=== PATIENT | female | born 1950 | race Caucasian/White ===

== ENCOUNTER 2018-11-22 09:47 | Emergency (ER) | payer MEDICARE ==
[~2018-11-22] VITALS: Ht 160 cm; Wt 59.1 kg
[~2018-11-22 09:47] MED LIST: ACET1TAB12 PO; BENZ1TAB7 PO; CALC0.2536 PO; CHOL2000 PO; CLON-527 PO; GABA-338 PO; HALO1TAB PO; LEVO88TA39 PO; QUET150T2 PO; TRIH2TAB3 PO; ZOLP10TA5 PO
[2018-11-22 10:48] LABS: BASOPHILS # (AUTO) 0.1 X10'3 (0-0.2); BASOPHILS % (AUTO) 1.3 % (0-1); EOSINOPHILS # (AUTO) 0.3 X10'3 (0-0.9); EOSINOPHILS % (AUTO) 3.9 % (0-6); HEMATOCRIT 39.6 % (35.0-45.0); HEMOGLOBIN 12.9 g/dl (12.0-16.0); LYMPHOCYTES # (AUTO) 1.9 X10'3 (1.1-4.8); LYMPHOCYTES % (AUTO) 24.9 % (21-51); MEAN CORPUSCULAR HEMOGLOBIN 30.4 PG (27.0-31.0); MEAN CORPUSCULAR HGB CONC 32.6 g/dL (33.0-36.5); MEAN CORPUSCULAR VOLUME 93.1 FL (78-98); MEAN PLATELET VOLUME 8.8 FL (7.4-10.4); MONOCYTES # (AUTO) 0.5 X10'3 (0-0.9); NEUTROPHILS # (AUTO) 4.7 X10'3 (1.8-7.7); NEUTROPHILS % (AUTO) 62.9 % (42-75); PLATELET COUNT 236 X10'3 (140-440); RED BLOOD COUNT 4.25 X10'6 (4.20-5.60); RED CELL DISTRIBUTION WIDTH 13.9 % (11.5-14.5); WHITE BLOOD COUNT 7.4 X10'3 (4.5-11.0)
[2018-11-22 11:00] LABS: ALANINE AMINOTRANSFERASE 20 U/L (12-78); ALBUMIN 3.5 G/DL (3.4-5.0); ALBUMIN/GLOBULIN RATIO 0.9 (1.1-1.5); ALKALINE PHOSPHATASE 60 IU/L (46-116); ANION GAP 5 (8-16); ASPARTATE AMINO TRANSFERASE 12 U/L (10-37); BILIRUBIN,TOTAL 0.5 MG/DL (0.1-1.0); BLOOD UREA NITROGEN 19 MG/DL (7-18); CALCIUM 9.3 MG/DL (8.5-10.1); CHLORIDE 104 MMOL/L (99-107); CREATININE 1.27 MG/DL (0.40-0.90); GLUCOSE 99 MG/DL (70-104); POTASSIUM 4.3 MMOL/L (3.5-5.1); SODIUM 141 MMOL/L (135-145); TOTAL CARBON DIOXIDE 32.5 MMOL/L (24-32); TOTAL PROTEIN 7.3 G/DL (6.4-8.2); eGFR 42 ML/MIN
[2018-11-22] MEDS ORDERED: normal saline 1000ML IV soln IVB ONE ×2 (12:10→12:55)
--- NOTE | 2018-11-22 12:38 | NUR ---
PATIENT PLACED ON TRENDELENBERG,CALL LIGHT WITHIN REACH.
--- NOTE | 2018-11-22 13:51 | NUR ---
pt up to [facility].
[2018-11-22 14:23] LABS: CLARITY,URINE CLOUDY (Clear); COLOR,URINE YELLOW (Yellow); GLUCOSE, URINE NEGATIVE (Neg); KETONES,URINE NEGATIVE (Neg); LEUKOCYTE ESTERASE ,URINE LARGE (Neg); NITRITES, URINE NEGATIVE (Neg); OCCULT BLOOD,URINE SMALL (Neg); PROTEIN,URINE TRACE mg/dl (Neg); UROBILINOGEN,URINE 0.2 E.U/dL (0.2-1.0)
[2018-11-22 14:27] LABS: UA COLLECTION TYPE CLN CATCH MIDSTREAM
[2018-11-22 14:30] LABS: BACTERIA,URINE 2+ /HPF (Neg); MUCUS STRANDS NONE SEEN /LPF (Neg); RBC,URINE 0-2 /HPF (0-2); SQUAMOUS EPITHELIAL CELL,UR NONE SEEN /LPF (FEW); WBC,URINE TNTC /HPF (0-4)
[2018-11-22] MEDS ORDERED: cephalexin 500mg capsule PO ONE (14:30)
[2018-11-22] MEDS ORDERED: CEPH500C5 PO (14:31)
[2018-11-22 15:06] VITALS: BP 123/74
== END 2018-11-22 15:09 | disposition home or self-care (01) ==
LOC: ER 09:48
DX: E86.0 Dehydration (principal); N39.0 Urinary tract infection, site not specified; E11.9 Type 2 diabetes mellitus without complications; E21.3 Hyperparathyroidism, unspecified; E03.9 Hypothyroidism, unspecified; F31.9 Bipolar disorder, unspecified; Z98.890 Other specified postprocedural states; Z86.73 Personal history of transient ischemic attack (TIA), and cerebral infarction without residual deficits; Z87.891 Personal history of nicotine dependence; Z56.0 Unemployment, unspecified; Z98.84 Bariatric surgery status; Z90.89 Acquired absence of other organs; Z88.8 Allergy status to other drugs, medicaments and biological substances; Z79.899 Other long term (current) drug therapy
CPT/HCPCS: 36415; 80053; 81001; 84443; 85025; 87077; 87088; 87186; 93005; 96360; 96361; 99284; J7030

== ENCOUNTER 2018-12-25 11:35 | Outpatient (CLI) | payer MEDICARE ==
[2018-12-25] VITALS (26 sets, daily range): BP systolic 78–133; BP diastolic 60–81
[~2018-12-25 11:35] MED LIST changes: +CEPH500C5 PO
== END 2018-12-25 23:59 | disposition home or self-care (01) ==
LOC: CARD DIAG 11:35
PROVIDERS: ATTEND Internal Medicine Interventional Cardiology
DX: I95.1 Orthostatic hypotension (principal)
CPT/HCPCS: 93660

== ENCOUNTER 2019-05-08 09:32 | Emergency (ER) | payer MEDICARE ==
[~2019-05-08] VITALS: Ht 160 cm; Wt 56.0 kg
[2019-05-08] MEDS ORDERED: traMADol 50MG tablet PO ONE (10:05)
[2019-05-08 11:33] VITALS: BP 111/69
== END 2019-05-08 11:52 | disposition home or self-care (01) ==
LOC: ER 09:32
DX: I80.02 Phlebitis and thrombophlebitis of superficial vessels of left lower extremity (principal); E11.9 Type 2 diabetes mellitus without complications; E03.9 Hypothyroidism, unspecified; F31.9 Bipolar disorder, unspecified; F10.99 Alcohol use, unspecified with unspecified alcohol-induced disorder; Z86.73 Personal history of transient ischemic attack (TIA), and cerebral infarction without residual deficits; Z98.84 Bariatric surgery status; Z98.890 Other specified postprocedural states; Z56.0 Unemployment, unspecified; Z88.8 Allergy status to other drugs, medicaments and biological substances; Z79.899 Other long term (current) drug therapy; Y90.9 Presence of alcohol in blood, level not specified
CPT/HCPCS: 93971; 99284

== ENCOUNTER 2019-05-15 09:43 | Observation (INO) | payer MEDICARE ==
[~2019-05-15] VITALS: Ht 165.1 cm; Wt 65.9 kg
--- NOTE | 2019-05-15 10:28 | NUR ---
vascular at bedside with pt.
[2019-05-15 11:02] LABS: BASOPHILS % (AUTO) 0.4 % (0-1); EOSINOPHILS # (AUTO) 0.2 X10'3 (0-0.9); EOSINOPHILS % (AUTO) 1.4 % (0-6); HEMATOCRIT 36.4 % (35.0-45.0); HEMOGLOBIN 11.6 g/dl (12.0-16.0); LYMPHOCYTES # (AUTO) 0.5 X10'3 (1.1-4.8); LYMPHOCYTES % (AUTO) 3.8 % (21-51); MEAN CORPUSCULAR HEMOGLOBIN 27.9 PG (27.0-31.0); MEAN CORPUSCULAR HGB CONC 31.9 g/dL (33.0-36.5); MEAN CORPUSCULAR VOLUME 87.4 FL (78-98); MEAN PLATELET VOLUME 8.4 FL (7.4-10.4); MONOCYTES # (AUTO) 0.4 X10'3 (0-0.9); MONOCYTES % (AUTO) 3.1 % (2-12); NEUTROPHILS # (AUTO) 10.7 X10'3 (1.8-7.7); NEUTROPHILS % (AUTO) 91.3 % (42-75); PLATELET COUNT 259 X10'3 (140-440); RED BLOOD COUNT 4.17 X10'6 (4.20-5.60); RED CELL DISTRIBUTION WIDTH 16.9 % (11.5-14.5); WHITE BLOOD COUNT 11.7 X10'3 (4.5-11.0)
[2019-05-15 11:14] LABS: ALANINE AMINOTRANSFERASE 15 U/L (12-78); ALBUMIN 2.8 G/DL (3.4-5.0); ALBUMIN/GLOBULIN RATIO 0.7 (1.1-1.5); ALKALINE PHOSPHATASE 108 IU/L (46-116); ANION GAP 11 (8-16); ASPARTATE AMINO TRANSFERASE 19 U/L (10-37); BILIRUBIN,TOTAL 0.4 MG/DL (0.1-1.0); BLOOD UREA NITROGEN 37 MG/DL (7-18); BUN/CREATININE RATIO 14.6 (6.6-38.0); CALCIUM 8.7 MG/DL (8.5-10.1); CHLORIDE 106 MMOL/L (99-107); CREATININE 2.53 MG/DL (0.40-0.90); GLUCOSE 92 MG/DL (70-104); LIPASE 56 U/L (73-393); POTASSIUM 4.9 MMOL/L (3.5-5.1); SODIUM 142 MMOL/L (135-145); TOTAL CARBON DIOXIDE 24.8 MMOL/L (24-32); TOTAL PROTEIN 6.7 G/DL (6.4-8.2); eGFR 19 ML/MIN
[2019-05-15 11:14] LABS: CLARITY,URINE SLIGHTLY CLOUDY (Clear); COLOR,URINE YELLOW (Yellow); GLUCOSE, URINE NEGATIVE (Neg); KETONES,URINE NEGATIVE (Neg); LEUKOCYTE ESTERASE ,URINE NEGATIVE (Neg); NITRITES, URINE NEGATIVE (Neg); OCCULT BLOOD,URINE NEGATIVE (Neg); PH,URINE 5.5 (4.8-8.0); PROTEIN,URINE NEGATIVE (Neg); UROBILINOGEN,URINE 0.2 E.U/dL (0.2-1.0)
[2019-05-15 11:17] LABS: UA COLLECTION TYPE CLN CATCH MIDSTREAM
[2019-05-15 11:23] LABS: WBC,URINE 0-4 /HPF (0-4)
[2019-05-15 11:25] LABS: BACTERIA,URINE FEW /HPF (Neg); MUCUS STRANDS FEW /LPF (Neg); RBC,URINE 0-2 /HPF (0-2); SQUAMOUS EPITHELIAL CELL,UR FEW /LPF (FEW)
[2019-05-15 11:26] LABS: HYALINE CASTS 0-3 /LPF (NEGATIVE); RENAL CELLS, URINE FEW /HPF
--- NOTE | 2019-05-15 11:40 | NUR ---
preceptor for JUAN RAMON Aponte
[2019-05-15] MEDS ORDERED: ondansetron/PF 4mg/2ml inj IV ONE (11:45)
[2019-05-15] MEDS ORDERED: normal saline 1000ML IV soln IVB ONE (11:45)
[2019-05-15] MEDS ORDERED: ACET-3067 PO (12:18)
[2019-05-15] MEDS ORDERED: GABA600T PO (12:18)
[2019-05-15] MEDS ORDERED: QUET300T2 PO (12:18)
[2019-05-15] MEDS ORDERED: ROPI0.252 PO (12:18)
[2019-05-15] MEDS ORDERED: POLY17PO10 PO (12:18)
[2019-05-15] MEDS ORDERED: OMEP20TA23 PO (12:18)
[2019-05-15] MEDS ORDERED: MELA3TAB64 PO (12:18)
[2019-05-15] MEDS ORDERED: LEVO50TA PO (12:18)
[2019-05-15] MEDS ORDERED: potassium CL 10mEq/100ml bag 100 ML IV PRN ×2 (12:20)
[2019-05-15] MEDS ORDERED: magnesium hydroxide 30ml (MOM) UD suspension PO PRN (12:20)
[2019-05-15] MEDS ORDERED: acetaminophen 325mg tablet PO PRN (12:20)
[2019-05-15] MEDS ORDERED: magnesium Cl slow-release 64mg tablet PO PRN (12:20)
[2019-05-15] MEDS ORDERED: mag hydrox/Alum hydrox/simeth 30ml oral suspension PO PRN (12:20)
[2019-05-15] MEDS ORDERED: magnesium 2GM in 50ml NS 50 ML IV PRN (12:20)
[2019-05-15] MEDS ORDERED: potassium Cl 20 mEq SR tablet PO PRN ×2 (12:20)
[2019-05-15] MEDS ORDERED: magnesium 4gm in 100ml NS 100 ML IV PRN (12:20)
[2019-05-15] MEDS ORDERED: metoclopramide 5 mg/ml inj IV PRN (12:20)
--- NOTE | 2019-05-15 12:33 | NUR ---
Patient given ice water per Dr Bianchi.
[2019-05-15 12:49] LABS: PARTIAL THROMBOPLASTIN TIME 26 SECONDS (22-32)
[2019-05-15] MEDS: normal saline 1000ml 1,000 ML IV SCH (13:13)
[2019-05-15] MEDS: polyethylene glycol 3350 17gm powd pack PO SCH (13:35)
[2019-05-15] MEDS ORDERED: zolpidem 5mg tablet PO PRN (13:45)
[2019-05-15 15:00] VITALS: BP 85/59
[2019-05-15 18:00] VITALS: BP 95/61
--- NOTE | 2019-05-15 18:30 | NUR ---
Patient in room [facility]. I have received report from JUAN RAMON Mayers and had the opportunity to ask questions and assume patient care.
--- NOTE | 2019-05-15 19:08 | NUR ---
Received report from [facility] ED nurse around 1300. Patient report given, questions answered & plan of care reviewed with Andrea DELATORRE.
[2019-05-15] MEDS: K and/or MAG REPLACEMENT MC SCH (20:00)
[2019-05-15] MEDS ORDERED: calcitriol 0.25mcg capsule PO SCH (21:00)
[2019-05-15] MEDS ORDERED: Melatonin 3mg tablet PO SCH (21:00)
[2019-05-15] MEDS ORDERED: gabapentin 300mg capsule PO SCH (21:00)
[2019-05-15] MEDS ORDERED: acetaminophen w/codeine (30MG) #3 tablet PO SCH (21:00)
[2019-05-15] MEDS ORDERED: ROPINIRole 0.25mg tablet PO SCH (21:00)
[2019-05-15] MEDS ORDERED: quetiapine 100mg tablet PO SCH (21:00)
[2019-05-15] MEDS ORDERED: temazepam 15mg capsule PO PRN (21:00)
[2019-05-15] MEDS ORDERED: acetaminophen w/codeine (60MG) #4 tablet PO SCH (21:00)
[2019-05-15] MEDS: ondansetron/PF 4mg/2ml inj IV PRN (21:11)
[2019-05-15] MEDS: heparin, porcine 5000 units/ml vial SQ SCH (21:58)
[2019-05-15 22:00] LABS: HEMOGLOBIN A1C 5.9 % (4.5-6.2)
[2019-05-16] VITALS: BP 93/51
[2019-05-16] MEDS: normal saline 1000ml 1,000 ML IV SCH ×2 (00:19→08:18)
[2019-05-16 05:59] LABS: BASOPHILS % (AUTO) 0.4 % (0-1); EOSINOPHILS # (AUTO) 0.2 X10'3 (0-0.9); EOSINOPHILS % (AUTO) 2.6 % (0-6); HEMATOCRIT 30.1 % (35.0-45.0); HEMOGLOBIN 9.8 g/dl (12.0-16.0); LYMPHOCYTES # (AUTO) 0.9 X10'3 (1.1-4.8); LYMPHOCYTES % (AUTO) 10.2 % (21-51); MEAN CORPUSCULAR HEMOGLOBIN 28.4 PG (27.0-31.0); MEAN CORPUSCULAR HGB CONC 32.6 g/dL (33.0-36.5); MEAN CORPUSCULAR VOLUME 87.1 FL (78-98); MEAN PLATELET VOLUME 8.8 FL (7.4-10.4); MONOCYTES # (AUTO) 0.6 X10'3 (0-0.9); MONOCYTES % (AUTO) 6.6 % (2-12); NEUTROPHILS # (AUTO) 7.2 X10'3 (1.8-7.7); NEUTROPHILS % (AUTO) 80.2 % (42-75); PLATELET COUNT 205 X10'3 (140-440); RED BLOOD COUNT 3.46 X10'6 (4.20-5.60); RED CELL DISTRIBUTION WIDTH 16.9 % (11.5-14.5)
[2019-05-16 06:06] LABS: PARTIAL THROMBOPLASTIN TIME 32 SECONDS (22-32)
[2019-05-16 06:30] VITALS: BP 100/59
--- NOTE | 2019-05-16 06:30 | NUR ---
Patient in room [facility]. I have received report from JUAN RAMON Mendez and had the opportunity to ask questions and assume patient care.
[2019-05-16 06:32] LABS: ALANINE AMINOTRANSFERASE 12 U/L (12-78); ALBUMIN 2.2 G/DL (3.4-5.0); ALBUMIN/GLOBULIN RATIO 0.7 (1.1-1.5); ALKALINE PHOSPHATASE 89 IU/L (46-116); ANION GAP 10 (8-16); ASPARTATE AMINO TRANSFERASE 18 U/L (10-37); BILIRUBIN,TOTAL 0.4 MG/DL (0.1-1.0); BLOOD UREA NITROGEN 36 MG/DL (7-18); BUN/CREATININE RATIO 14.9 (6.6-38.0); CALCIUM 7.9 MG/DL (8.5-10.1); CHLORIDE 111 MMOL/L (99-107); CHOL/HDL RATIO 3.1 (0.00-4.99); CHOLESTEROL 162 MG/DL (0-200); CREATININE 2.42 MG/DL (0.40-0.90); GLUCOSE 78 MG/DL (70-104); HDL CHOLESTEROL 53 MG/DL (35-60); LDL CHOLESTEROL 77 MG/DL (50-100); POTASSIUM 4.9 MMOL/L (3.5-5.1); SODIUM 144 MMOL/L (135-145); TOTAL CARBON DIOXIDE 23.5 MMOL/L (24-32); TOTAL PROTEIN 5.4 G/DL (6.4-8.2); TRIGLYCERIDES 153 MG/DL (20-135); eGFR 20 ML/MIN
--- NOTE | 2019-05-16 06:52 | NUR ---
Problems reprioritized. Patient report given, questions answered & plan of care reviewed with JUAN RAMON Martinez.
[2019-05-16] MEDS ORDERED: levoTHYROXINE 25mcg tablet PO SCH (07:00)
--- NOTE | 2019-05-16 07:03 | NUR ---
Patient in room [facility]. I have received report from Andrea DELATORRE and had the opportunity to ask questions and assume patient care.
[2019-05-16] MEDS ORDERED: pantoprazole 40mg Tablet.DR PO SCH (07:30)
[2019-05-16] MEDS: K and/or MAG REPLACEMENT MC SCH (07:55)
[2019-05-16] MEDS: polyethylene glycol 3350 17gm powd pack PO SCH (08:12)
[2019-05-16] MEDS: ondansetron/PF 4mg/2ml inj IV PRN (08:13)
[2019-05-16] MEDS: heparin, porcine 5000 units/ml vial SQ SCH (08:13)
--- NOTE | 2019-05-16 10:12 | NUR ---
DM consult: Pt with A1c 5.9, DM education not warranted at this time. Will continue to follow. Addendum: 05/16/19 at [address] Amended: Links added.
[2019-05-16 11:00] VITALS: BP 101/61
--- NOTE | 2019-05-16 15:25 | NUR ---
Patient sent home with . Explained medications and discharge plan to follow up with MD and referral to Urologist. Discontinued IV, tip intact. All belongings sent with patient. Stable at discharge. Wheelchaired to front lobby.
[2019-05-17 08:08] LABS: HBSAG SCREEN Negative (Negative); HEP A AB, IGM Negative (Negative); HEP B CORE AB, IGM Negative (Negative); HEPATITIS C ANTIBODY <0.1 s/co ratio (0.0-0.9)
== END 2019-05-16 15:39 | disposition home or self-care (01) ==
LOC: ER 09:44 → ED HOLD 12:18 → SUR 3N 13:46
PROVIDERS: ADMIT Family Medicine; ATTEND Family Medicine
DX: E11.22 Type 2 diabetes mellitus with diabetic chronic kidney disease (principal); N18.9 Chronic kidney disease, unspecified; N17.9 Acute kidney failure, unspecified; F31.9 Bipolar disorder, unspecified; E86.0 Dehydration; R11.2 Nausea with vomiting, unspecified; N13.2 Hydronephrosis with renal and ureteral calculous obstruction; F41.9 Anxiety disorder, unspecified; R18.8 Other ascites; R09.02 Hypoxemia; E43 Unspecified severe protein-calorie malnutrition; I80.9 Phlebitis and thrombophlebitis of unspecified site; K74.60 Unspecified cirrhosis of liver; G24.01 Drug induced subacute dyskinesia; K59.09 Other constipation; F25.9 Schizoaffective disorder, unspecified; E03.9 Hypothyroidism, unspecified; J45.909 Unspecified asthma, uncomplicated; Z86.718 Personal history of other venous thrombosis and embolism; Z86.711 Personal history of pulmonary embolism; Z86.73 Personal history of transient ischemic attack (TIA), and cerebral infarction without residual deficits; Z95.828 Presence of other vascular implants and grafts; Z90.49 Acquired absence of other specified parts of digestive tract; Z90.710 Acquired absence of both cervix and uterus; Z98.84 Bariatric surgery status; Z79.899 Other long term (current) drug therapy; Z88.4 Allergy status to anesthetic agent; Z88.8 Allergy status to other drugs, medicaments and biological substances
CPT/HCPCS: 36415; 74176; 80053; 80061; 80074; 81001; 82948; 83036; 83690; 83735; 85025; 85610; 85730; 87081; 93971; 96361; 96372; 96374; 96376; 97161; 97530; 99284; G0378; J1644; J2405; J7030